=== PATIENT | female | born 1970 | race American Indian/Alaskan Native ===

== ENCOUNTER 2018-11-08 17:06 | Emergency (ER) | payer OTHER ==
--- NOTE | 2018-11-08 17:33 | Emergency Department Report ---
Blank Doc - Documentation Documentation: This is a 48-year-old female that presents with neck pain with radiation to left arm area. Patient also has cough x2 weeks with chest pain only during cough. Patient denies any SOB. This initial assessment/diagnostic orders/clinical plan/treatment(s) is/are subject to change based on patient's health status, clinical progression and re- assessment by fellow clinical providers in the ED. Further treatment and workup at subsequent clinical providers discretion. Patient/guardians urged not to elope from the ED as their condition may be serious if not clinically assessed and managed. Initial orders include: 1- Patient sent to [facility] for further evaluation and treatment 2- EKG 3- Labs 4- CXR
[2018-11-08 18:13] LABS: Hematocrit 38.8 % (30.3-42.9); Hemoglobin 13.2 gm/dl (10.1-14.3); Mean Corpuscular HGB Conc 34 % (30-34); Mean Corpuscular Volume 82 fl (79-97); Platelet Count 292 K/mm3 (140-440); Red Blood Count 4.73 M/mm3 (3.65-5.03); Red Cell Distribution Width 14.5 % (13.2-15.2)
[2018-11-08 18:31] LABS: BUN/Creatinine Ratio 16; Blood Urea Nitrogen 11 mg/dL (7-17); Calcium 9.1 mg/dL (8.4-10.2); Hemolysis Index 20
--- NOTE | 2018-11-08 20:15 | XRay Report ---
PROCEDURE: XR CHEST ROUTINE 2V TECHNIQUE: PA and lateral views of the chest. HISTORY: Chest Pain COMPARISONS: None FINDINGS: Lines, tubes, and devices: N/A Lungs and pleura: Trachea is normal in position. Lungs are clear of infiltrate, pleural effusion, vas cular congestion, or pneumothorax. Cardiomediastinal silhouette: Cardiac and mediastinal silhouettes are unremarkable. Other: Bony structures are intact. IMPRESSION: No acute cardiopulmonary process seen. . This document is electronically signed by Melanie Scott MD., November 08 2018 08:13:17 PM ET
[2018-11-08 20:30] LABS: Ovalocytes Few; Total Cells Counted 100
[2018-11-08] MEDS ORDERED: TORADOL IM ONE (20:31)
[2018-11-08] MEDS ORDERED: NORCO 5/325 PO ONE (20:31)
[2018-11-08] MEDS ORDERED: TESSALON PERLES PO ONE (20:31)
--- NOTE | 2018-11-08 20:54 | Emergency Department Report ---
- General Chief Complaint: Chest Pain Stated Complaint: (L) SIDE CHEST PAIN/ARM Time Seen by Provider: 11/08/18 17:30 Source: patient Mode of arrival: Ambulatory Limitations: No Limitations - History of Present Illness Initial Comments: 48-year-old female with a past history of previous subarachnoid hemorrhage in 2016, hypertension, and elevated cholesterol resisted hospital for placement of pain and cold symptoms 2 weeks. The past 2 weeks she has had nasal congestion with decreased appetite. Today she developed a nonproductive cough. Patient complains of left sided neck pain that worsens with palpation and movement. Pain is aching rate is 7/10 in intensity. Improved with immobilization. Positive intermittent shooting pains going down the arm without focal weakness. Patient complains of anterior chest pain with cough only. She denies wheezing, shortness of breath, or fevers. She tried Tylenol and Coricidin products without relief. Patient is compliant with her blood pressure medication last dosed this a.m. She is noncompliant with her cholesterol medication. She has not seen her doctor in over one year. - Related Data Previous Rx's Medication Instructions Recorded Last Taken Type Acetaminophen/Codeine [Tylenol #3] 1 tab PO Q6H PRN #20 tab 06/22/15 Unknown Rx Prednisone [predniSONE 5 mg (6-Day 5 mg PO .TAPER #1 tab.ds.pk 06/22/15 Unknown Rx Pack, 21 Tabs)] Azithromycin [Zithromax Z-PEDRO LUIS] 1 dose PO DAILY 5 Days tab 11/08/18 Unknown Rx Benzonatate [Tessalon Perles] 100 mg PO Q8HR PRN #20 capsule 11/08/18 Unknown Rx Cyclobenzaprine [Flexeril] 10 mg PO TID PRN #20 tablet 11/08/18 Unknown Rx HYDROcodone/APAP 5-325 [[place] 1 each PO Q6HR PRN #15 tablet 11/08/18 Unknown Rx 5/325] Ibuprofen [Motrin] 600 mg PO Q8H PRN #20 tablet 11/08/18 Unknown Rx Sodium Chloride [Saline Nasal 1 - 2 spray NS PRN PRN #1 bottle 11/08/18 Unknown Rx [place]] Allergies Allergy/AdvReac Type Severity Reaction Status Date / Time No Known Allergies Allergy Verified 06/21/15 21:47 ED Review of Systems ROS: Stated complaint: (L) SIDE CHEST PAIN/ARM Other details as noted in HPI Comment: All other systems reviewed and negative ED Past Medical Hx - Past Medical History Hx Hypertension: Yes Hx CVA: Yes (SAH 2017) Additional medical history: SAH 2016. elevated cholesterol - Surgical History Additional Surgical History: brain surgery due to SAH - Social History Smoking Status: Never Smoker Substance Use Type: None - Medications Home Medications: Home Medications Medication Instructions Recorded Confirmed Last Taken Type Acetaminophen/Codeine [Tylenol #3] 1 tab PO Q6H PRN #20 tab 06/22/15 Unknown Rx Prednisone [predniSONE 5 mg (6-Day 5 mg PO .TAPER #1 tab.ds.pk 06/22/15 Unknown Rx Pack, 21 Tabs)] Azithromycin [Zithromax Z-PEDRO LUIS] 1 dose PO DAILY 5 Days tab 11/08/18 Unknown Rx Benzonatate [Tessalon Perles] 100 mg PO Q8HR PRN #20 capsule 11/08/18 Unknown Rx Cyclobenzaprine [Flexeril] 10 mg PO TID PRN #20 tablet 11/08/18 Unknown Rx HYDROcodone/APAP 5-325 [[place] 1 each PO Q6HR PRN #15 tablet 11/08/18 Unknown Rx 5/325] Ibuprofen [Motrin] 600 mg PO Q8H PRN #20 tablet 11/08/18 Unknown Rx Sodium Chloride [Saline Nasal 1 - 2 spray NS PRN PRN #1 bottle 11/08/18 Unknown Rx [place]] ED Physical Exam - General Limitations: No Limitations - Eye Eye exam: Present: periorbital tenderness - Other Other exam information: General: No limitations, patient is alert in no acute distress Head exam: Atraumatic, normocephalic Eyes exam: Normal appearance, pupils equal reactive to light, extraocular movements intact ENT: Moist mucous membrane, nasal congestion Neck exam: Normal inspection, full range of motion, no meningismus, reproducible left trapezius and sternocleidomastoid tenderness extending to the shoulder. Respiratory exam: Clear to auscultation bilateral, no wheezes, rales, crackles. Reproducible anterior chest wall tenderness Cardiovascular: Normal rate and rhythm, normal heart sounds Abdomen: Soft, nondistended, and nontender, with normal bowel sounds, no rebound, or guarding Extremity: Full range of motion normal inspection no deformity, no calf tenderness or edema Back: Normal Inspection, full range of motion, no tenderness Neurologic: Alert, oriented x3, cranial nerves intact, no motor or sensory deficit with equal strength and sensation bilateral upper and lower extremities Psychiatric: normal affect, normal mood Skin: Warm, dry, intact ED Course Vital Signs 11/08/18 11/08/18 17:37 20:19 Temperature 97.9 F Pulse Rate 99 H Respiratory 16 Rate Blood Pressure 169/83 173/84 O2 Sat by Pulse 100 97 Oximetry ED Medical Decision Making - Lab Data Result diagrams: 11/08/18 17:47 11/08/18 17:47 Lab Results 11/08/18 11/08/18 Range/Units 17:47 17:47 WBC 4.8 (4.5-11.0) K/mm3 RBC 4.73 (3.65-5.03) M/mm3 Hgb 13.2 (10.1-14.3) gm/dl Hct 38.8 (30.3-42.9) % MCV 82 (79-97) fl MCH 28 (28-32) pg MCHC 34 (30-34) % RDW 14.5 (13.2-15.2) % Plt Count 292 (140-440) K/mm3 Lymph % (Auto) Not Reportable [place] % (Auto) Not Reportable Eos % (Auto) Not Reportable Baso % (Auto) Not Reportable Lymph # Not Reportable [place] # Not Reportable Eos # Not Reportable Baso # Not Reportable Add Manual Diff Complete Total Counted 100 Seg Neuts % (Manual) 52.0 (40.0-70.0) % Band Neutrophils % 1.0 % Lymphocytes % (Manual) 36.0 H (13.4-35.0) % Reactive Lymphs % (Man) 0 % Monocytes % (Manual) 9.0 H (0.0-7.3) % Eosinophils % (Manual) 1.0 (0.0-4.3) % Basophils % (Manual) 1.0 (0.0-1.8) % Metamyelocytes % 0 % Myelocytes % 0 % Promyelocytes % 0 % Blast Cells % 0 % Nucleated RBC % Not Reportable Seg Neutrophils # Not Reportable Seg Neutrophils # Man 2.5 (1.8-7.7) K/mm3 Band Neutrophils # 0.0 K/mm3 Lymphocytes # (Manual) 1.7 (1.2-5.4) K/mm3 Abs React Lymphs (Man) 0.0 K/mm3 Monocytes # (Manual) 0.4 (0.0-0.8) K/mm3 Eosinophils # (Manual) 0.0 (0.0-0.4) K/mm3 Basophils # (Manual) 0.0 (0.0-0.1) K/mm3 Metamyelocytes # 0.0 K/mm3 Myelocytes # 0.0 K/mm3 Promyelocytes # 0.0 K/mm3 Blast Cells # 0.0 K/mm3 WBC Morphology Not Reportable Hypersegmented Neuts Not Reportable Hyposegmented Neuts Not Reportable Hypogranular Neuts Not Reportable Smudge Cells Not Reportable Toxic Granulation Not Reportable Toxic Vacuolation Not Reportable Dohle Bodies Not Reportable Pelger-Huet Anomaly Not Reportable Radha Rods Not Reportable Platelet Estimate Appears normal Clumped Platelets Not Reportable Plt Clumps, EDTA Not Reportable Large Platelets Not Reportable Giant Platelets Not Reportable Platelet Satelliting Not Reportable Plt Morphology Comment Not Reportable RBC Morphology Not Reportable Dimorphic RBCs Not Reportable Polychromasia Not Reportable Hypochromasia Not Reportable Poikilocytosis Not Reportable Anisocytosis Not Reportable Microcytosis Not Reportable Macrocytosis Not Reportable Spherocytes Not Reportable Pappenheimer Bodies Not Reportable Sickle Cells Not Reportable Target Cells Not Reportable Tear Drop Cells Not Reportable Ovalocytes Few Helmet Cells Not Reportable [place] Bodies Not Reportable [place] Rings Not Reportable [place] Cells Not Reportable Bite Cells Not Reportable Crenated Cell Not Reportable Elliptocytes Not Reportable Acanthocytes (Spur) Not Reportable Rouleaux Not Reportable Hemoglobin C Crystals Not Reportable Schistocytes Not Reportable Malaria parasites Not Reportable Wing Bodies Not Reportable Hem Pathologist Commnt No Sodium 144 (137-145) mmol/L Potassium 3.9 (3.6-5.0) mmol/L Chloride 106.2 (98-107) mmol/L Carbon Dioxide 24 (22-30) mmol/L Anion Gap 18 mmol/L BUN 11 (7-17) mg/dL Creatinine 0.7 (0.7-1.2) mg/dL Estimated GFR > 60 ml/min BUN/Creatinine Ratio 16 % Glucose 138 H (65-100) mg/dL Calcium 9.1 (8.4-10.2) mg/dL Troponin T < 0.010 (0.00-0.029) ng/mL - EKG Data -: EKG Interpreted by Me EKG shows normal: sinus rhythm, axis (qrs 62), QRS complexes (qrsd 82), ST-T waves (no stemi) Rate: normal - EKG Data When compared to previous EKG there are: previous EKG unavailable - Radiology Data Radiology results: report reviewed cxr naf - Medical Decision Making Patient she is symptomatically for pain. Left sided neck pain appears muscular skeletal possible associated radiculopathy. Chest pain is also reproducible rectae secondary to URI and cough. Patient she will be treated with a Z-Pedro Luis and symptomatic treatment and outpatient follow-up with PMD encouraged - Differential Diagnosis bronchitis, pneumonia, muscle strain, radiculopathy, CVA Critical Care Time: No Critical care attestation.: If time is entered above; I have spent that time in minutes in the direct care of this critically ill patient, excluding procedure time. ED Disposition Clinical Impression: Acute bronchitis, URI (upper respiratory infection), Strain of neck, Cervical radiculopathy, Strain of chest wall, Chronic hypertension Disposition: DC- TO HOME OR SELFCARE Is pt being admited?: No Does the pt Need Aspirin: No Condition: Stable Instructions: Upper Respiratory Infection (ED), Acute Bronchitis (ED), Cervical Sprain (ED), Cervical Radiculopathy (ED), Thoracic Pain (ED), Hypertension (ED) Additional Instructions: Take the medication as prescribed. Follow up with your doctor or the clinic/doctor provided. Return if symptoms worsen as indicated by your dischar ge instructions Prescriptions: Cyclobenzaprine [Flexeril] 10 mg PO TID PRN #20 tablet PRN Reason: Muscle Spasm Ibuprofen [Motrin] 600 mg PO Q8H PRN #20 tablet PRN Reason: Pain HYDROcodone/APAP 5-325 [[place] 5/325] 1 each PO Q6HR PRN #15 tablet PRN Reason: Pain Sodium Chloride [Saline Nasal [place]] 1 - 2 spray NS PRN PRN #1 bottle PRN Reason: Nasal Congestion Benzonatate [Tessalon Perles] 100 mg PO Q8HR PRN #20 capsule PRN Reason: Cough Azithromycin [Zithromax Z-PEDRO LUIS] 1 dose PO DAILY 5 Days tab Referrals: XI EVANS MD [Primary Care Provider] - 3-5 Days Time of Disposition: 22:16
[2018-11-08 22:34] VITALS: BP 168/94
== END 2018-11-08 22:37 | disposition home or self-care (01) ==
LOC: ED 17:06
DX: S16.1XXA Strain of muscle, fascia and tendon at neck level, initial encounter (principal); S29.011A Strain of muscle and tendon of front wall of thorax, initial encounter; J20.9 Acute bronchitis, unspecified; I10 Essential (primary) hypertension; X58.XXXA Exposure to other specified factors, initial encounter; Y93.89 Activity, other specified; Y92.89 Other specified places as the place of occurrence of the external cause; Y99.8 Other external cause status
CPT/HCPCS: 36415; 71046; 80048; 84484; 85007; 85025; 93005; 93010; 96372; 99284; J1885

== ENCOUNTER 2018-11-11 15:29 | Emergency (ER) | payer OTHER ==
[2018-11-11 18:15] VITALS: BP 164/90
--- NOTE | 2018-11-11 18:16 | Emergency Department Report ---
Chief Complaint: Allergic Reaction Stated Complaint: ALLERGIC REACTION Time Seen by Provider: 11/11/18 18:12 - HPI History of Present Illness: Pt was evaluated in the ED two days ago received IM injection of toradol, pt states she has received this medicine previously in the past c/o left arm pain, states that she also has a rash to the face had not taken anything for it MSE screening note: Focused history and physical exam performed. ED Disposition for MSE Condition: Stable
[2018-11-11] MEDS ORDERED: BANOPHEN PO ONE (18:17)
[2018-11-11] MEDS ORDERED: DECADRON IV ONE (19:40)
[2018-11-11] MEDS ORDERED: TORADOL IV ONE (19:40)
[2018-11-11] MEDS ORDERED: REGLAN IV ONE (19:40)
--- NOTE | 2018-11-11 20:35 | Emergency Department Report ---
ED Allergic Reaction HPI - General Chief complaint: Allergic Reaction Stated complaint: ALLERGIC REACTION Time Seen by Provider: 11/11/18 18:12 Source: patient Mode of arrival: Ambulatory Limitations: No Limitations - History of Present Illness Initial Comments: pt c/o neck pain that began 2 weeks radiating down the right arm, says it feels like "it has fallen asleep" no injury, trauma, or fall, never had before MD Complaint: allergic reaction Onset/Timin -: days(s) Exposure: medication Symptoms: rash, itching Severity: moderate Treatment Prior to Arrival: none Previous Allergy History: none - Related Data Previous Rx's Medication Instructions Recorded Last Taken Type Acetaminophen/Codeine [Tylenol #3] 1 tab PO Q6H PRN #20 tab 06/22/15 Unknown Rx Prednisone [predniSONE 5 mg (6-Day 5 mg PO .TAPER #1 tab.ds.pk 06/22/15 Unknown Rx Pack, 21 Tabs)] Azithromycin [Zithromax Z-THEODORE] 1 dose PO DAILY 5 Days tab 11/08/18 Unknown Rx Benzonatate [Tessalon Perles] 100 mg PO Q8HR PRN #20 capsule 11/08/18 Unknown Rx Cyclobenzaprine [Flexeril] 10 mg PO TID PRN #20 tablet 11/08/18 Unknown Rx HYDROcodone/APAP 5-325 [[place] 1 each PO Q6HR PRN #15 tablet 11/08/18 Unknown Rx 5/325] Ibuprofen [Motrin] 600 mg PO Q8H PRN #20 tablet 11/08/18 Unknown Rx Sodium Chloride [Saline Nasal 1 - 2 spray NS PRN PRN #1 bottle 11/08/18 Unknown Rx [place]] Famotidine [Pepcid] 20 mg PO BID 7 Days #14 tablet 11/11/18 Unknown Rx Ibuprofen 800 mg PO TID PRN #30 tablet 11/11/18 Unknown Rx predniSONE [Deltasone] 40 mg PO QDAY 5 Days #10 tab 11/11/18 Unknown Rx Allergies Allergy/AdvReac Type Severity Reaction Status Date / Time No Known Allergies Allergy Verified 06/21/15 21:47 ED Review of Systems ROS: Stated complaint: ALLERGIC REACTION Other details as noted in HPI Constitutional: denies: chills, fever Eyes: denies: eye pain, eye discharge, vision change ENT: denies: ear pain, throat pain Respiratory: denies: cough, shortness of breath, wheezing Cardiovascular: denies: chest pain, palpitations Endocrine: no symptoms reported Gastrointestinal: denies: abdominal pain, nausea, diarrhea Genitourinary: denies: urgency, dysuria, discharge Musculoskeletal: other (injection site pain swelling ) Skin: denies: rash, lesions Neurological: denies: headache, weakness, paresthesias Psychiatric: denies: anxiety, depression Hematological/Lymphatic: denies: easy bleeding, easy bruising ED Past Medical Hx - Past Medical History Previous Medical History?: Yes Hx Hypertension: Yes Hx CVA: Yes (SAH 2017) Additional medical history: SAH 2016. elevated cholesterol - Surgical History Past Surgical History?: Yes Additional Surgical History: brain surgery due to SAH - Social History Smoking Status: Never Smoker Substance Use Type: None - Medications Home Medications: Home Medications Medication Instructions Recorded Confirmed Last Taken Type Acetaminophen/Codeine [Tylenol #3] 1 tab PO Q6H PRN #20 tab 06/22/15 Unknown Rx Prednisone [predniSONE 5 mg (6-Day 5 mg PO .TAPER #1 tab.ds.pk 06/22/15 Unknown Rx Pack, 21 Tabs)] Azithromycin [Zithromax Z-THEODORE] 1 dose PO DAILY 5 Days tab 11/08/18 Unknown Rx Benzonatate [Tessalon Perles] 100 mg PO Q8HR PRN #20 capsule 11/08/18 Unknown Rx Cyclobenzaprine [Flexeril] 10 mg PO TID PRN #20 tablet 11/08/18 Unknown Rx HYDROcodone/APAP 5-325 [[place] 1 each PO Q6HR PRN #15 tablet 11/08/18 Unknown Rx 5/325] Ibuprofen [Motrin] 600 mg PO Q8H PRN #20 tablet 11/08/18 Unknown Rx Sodium Chloride [Saline Nasal 1 - 2 spray NS PRN PRN #1 bottle 11/08/18 Unknown Rx [place]] Famotidine [Pepcid] 20 mg PO BID 7 Days #14 tablet 11/11/18 Unknown Rx Ibuprofen 800 mg PO TID PRN #30 tablet 11/11/18 Unknown Rx predniSONE [Deltasone] 40 mg PO QDAY 5 Days #10 tab 11/11/18 Unknown Rx ED Physical Exam - General Limitations: No Limitations General appearance: alert, in no apparent distress - Head Head exam: Present: atraumatic, normocephalic - Eye Eye exam: Present: normal appearance, PERRL, EOMI - ENT ENT exam: Present: normal exam, normal orophraynx, mucous membranes moist, TM's normal bilaterally, normal external ear exam - Neck Neck exam: Present: normal inspection, full ROM. Absent: tenderness, meningismus, lymphadenopathy - Respiratory Respiratory exam: Present: normal lung sounds bilaterally. Absent: respiratory distress, wheezes, stridor, chest wall tenderness - Cardiovascular Cardiovascular Exam: Present: regular rate, normal rhythm, normal heart sounds. Absent: systolic murmur, diastolic murmur, rubs, gallop - GI/Abdominal GI/Abdominal exam: Present: soft, normal bowel sounds. Absent: tenderness, mass, bruit - Rectal Rectal exam: Present: deferred - Extremities Exam Extremities exam: Present: normal inspection, tenderness (lefty upper arm pain mild swelling no erythema no ecchymosis no rash rom intact urnerestricted ), normal capillary refill, pedal edema, joint swelling, calf tenderness - Back Exam Back exam: Present: normal inspection, full ROM. Absent: tenderness, CVA tenderness (R), CVA tenderness (L), muscle spasm, paraspinal tenderness, vertebral tenderness, rash noted - Neurological Exam Neurological exam: Present: alert, oriented X3, CN II-XII intact, normal gait, motor sensory deficit. Absent: reflexes normal - Psychiatric Psychiatric exam: Present: normal affect, normal mood - Skin Skin exam: Present: warm, dry, intact, normal color. Absent: rash ED Course Vital Signs 11/11/18 18:13 Temperature 98.0 F Pulse Rate 100 H Respiratory 16 Rate Blood Pressure 164/90 O2 Sat by Pulse 99 Oximetry ED Medical Decision Making - Medical Decision Making this is an injection site react only pain is improved with medications given in ed , plan prednisone, ibuprofen, pepcid, warm compresses follow up with pcp in 2-3 days return to ed if symptoms worsen pt verbalized agreement and under standing of discharge plan. Critical care attestation.: If time is entered above; I have spent that time in minutes in the direct care of this critically ill patient, excluding procedure time. ED Disposition Clinical Impression: Injection (erythema), Muscle pain Disposition: - TO HOME OR SELFCARE Is pt being admited?: No Does the pt Need Aspirin: No Condition: Stable Instructions: Musculoskeletal Pain (ED) Prescriptions: predniSONE [Deltasone] 40 mg PO QDAY 5 Days #10 tab Ibuprofen 800 mg PO TID PRN #30 tablet PRN Reason: pain Famotidine [Pepcid] 20 mg PO BID 7 Days #14 tablet Referrals: PRIMARY CARE, [Primary Care Provider] - 3-5 Days Forms: Work/School Release Form(ED) Time of Disposition: 20:38
== END 2018-11-11 20:45 | disposition home or self-care (01) ==
LOC: ED 15:29
DX: M79.18 Myalgia, other site (principal); L53.9 Erythematous condition, unspecified; I10 Essential (primary) hypertension; Z86.73 Personal history of transient ischemic attack (TIA), and cerebral infarction without residual deficits
CPT/HCPCS: 96374; 96375; 99282; J1100; J1885; J2765; Q0163

== ENCOUNTER 2020-12-10 21:22 | Observation (INO) | payer OTHER ==
--- NOTE | 2020-12-10 23:43 | XRay Report ---
CHEST PA AND LATERAL VIEWS INDICATION: chest pain. COMPARISON: None. FINDINGS: Support devices: None. Heart: Within normal limits. Lungs/Pleura: No acute pulmonary or pleural findings. IMPRESSION: 1. No acute findings. Signer Name: Chan Alves MD Signed: 12/10/2020 11:38 PM Workstation Name: [id number]
[2020-12-10 23:46] LABS: Basophils % (Auto) 0.6 % (0.0-1.8); Hematocrit 37.9 % (30.3-42.9); Hemoglobin 12.7 gm/dl (10.1-14.3); Lymphocytes % (Auto) 41.5 % (13.4-35.0); Mean Corpuscular HGB Conc 33 % (30-34); Mean Corpuscular Volume 82 fl (79-97); Monocytes # (Auto) 0.3 K/mm3 (0.0-0.8); Monocytes % (Auto) 6.8 % (0.0-7.3); Platelet Count 317 K/mm3 (140-440); Red Cell Distribution Width 14.5 % (13.2-15.2)
[2020-12-11 00:05] LABS: Alanine Aminotransferase 10 units/L (7-56); Albumin 4.8 g/dL (3.9-5); Blood Urea Nitrogen 10 mg/dL (7-17); Calcium 9.5 mg/dL (8.4-10.2); Hemolysis Index 17
[2020-12-11 00:30] LABS: BUN/Creatinine Ratio 17
[2020-12-11] MEDS ORDERED: SODIUM CHLORIDE 0.9% 1000 ML 500 ML IV ONE (08:17)
[2020-12-11] MEDS ORDERED: NITROGLYCERIN 0.4 MG TAB SUBL SL PRN (08:18)
--- NOTE | 2020-12-11 08:18 | Emergency Department Report ---
ED General Adult HPI - General Chief complaint: Chest Pain Stated complaint: my chest hurts and my arm is weak PUI?: No Time Seen by Provider: 12/11/20 07:13 Source: patient, RN notes reviewed Mode of arrival: Ambulatory Limitations: No Limitations - History of Present Illness Initial comments: The patient was evaluated in the emergency department for symptoms described in the history of present illness. He/she was evaluated in the context of the global COVID-19 pandemic, which necessitated consideration that the patient mi ght be at risk for infection with the virus that causes COVID-19. Institutional protocols and algorithms that pertain to the evaluation of patients at risk for COVID-19 are in a state of rapid change based on information released by regulatory bodies including the CDC and federal and state organizations. These policies and algorithms were followed during the patient's care in the emergency department. Please note that these policies, procedures and recommendations changed on a rapid basis. This is a pleasant 50-year-old female. She is not known to myself previously. She is right-hand dominant. She has a history of subarachnoid hemorrhage, hypertension, and high cholesterol. She presents to the ER with 2 complaints. Her first complaint is chest pain. The chest pain is central, and occasionally radiates to the right chest/shoulder, and left chest and shoulder. She indicates that it feels like "lightning." She denies headache, neck pain, vomiting, diaphoresis, shortness of breath. She denies travel, surgery, DVT and pulmonary embolism risk factors, leg pain and leg swelling. She also endorses that she feels like her left upper extremity is weak and numb, which started at 2:00 PM yesterday. She denies additional injuries, and she denies additional complaints. -: Gradual, hour(s), days(s) Location: chest, left, upper extremity Radiation: other (Bilateral chest) Severity scale (0 -10): 0 Quality: aching Consistency: intermittent Improves with: none Worsens with: none - Related Data Previous Rx's Medication Instructions Recorded Last Taken Type Acetaminophen/Codeine [Tylenol #3] 1 tab PO Q6H PRN #20 tab 06/22/15 Unknown Rx Prednisone [predniSONE 5 mg (6-Day 5 mg PO .TAPER #1 tab.ds.pk 06/22/15 Unknown Rx Pack, 21 Tabs)] Azithromycin [Zithromax Z-THEODORE] 1 dose PO DAILY 5 Days tab 11/08/18 Unknown Rx Benzonatate [Tessalon Perles] 100 mg PO Q8HR PRN #20 capsule 11/08/18 Unknown Rx Cyclobenzaprine [Flexeril] 10 mg PO TID PRN #20 tablet 11/08/18 Unknown Rx HYDROcodone/APAP 5-325 [[place] 1 each PO Q6HR PRN #15 tablet 11/08/18 Unknown Rx 5/325] Ibuprofen [Motrin] 600 mg PO Q8H PRN #20 tablet 11/08/18 Unknown Rx Sodium Chloride [Saline Nasal 1 - 2 spray NS PRN PRN #1 bottle 11/08/18 Unknown Rx [place]] Famotidine [Pepcid] 20 mg PO BID 7 Days #14 tablet 11/11/18 Unknown Rx Ibuprofen [Ibuprofen 800] 800 mg PO TID PRN #30 tablet 11/11/18 Unknown Rx predniSONE [Deltasone] 40 mg PO QDAY 5 Days #10 tab 11/11/18 Unknown Rx Allergies Allergy/AdvReac Type Severity Reaction Status Date / Time No Known Allergies Allergy Verified 06/21/15 21:47 ED Review of Systems ROS: Stated complaint: CHEST PAIN/WEAKNESS LT ARM Other details as noted in HPI Constitutional: other (Denies diaphoresis. Denies loss of taste and smell). denies: fever Eyes: denies: eye discharge, vision change ENT: denies: epistaxis Respiratory: denies: cough Cardiovascular: chest pain Gastrointestinal: denies: nausea, vomiting, hematemesis, melena, hematochezia Genitourinary: denies: dysuria Musculoskeletal: myalgia Neurological: weakness, numbness ED Past Medical Hx - Past Medical History Previous Medical History?: Yes Hx Hypertension: Yes Hx CVA: Yes (SAH 2017) Additional medical history: SAH 2016. elevated cholesterol - Surgical History Past Surgical History?: Yes Additional Surgical History: brain surgery due to SAH - Social History Smoking Status: Never Smoker Substance Use Type: None - Medications Home Medications: Home Medications Medication Instructions Recorded Confirmed Last Taken Type Acetaminophen/Codeine [Tylenol #3] 1 tab PO Q6H PRN #20 tab 06/22/15 Unknown Rx Prednisone [predniSONE 5 mg (6-Day 5 mg PO .TAPER #1 tab.ds.pk 10/23/15 Unknown Rx Pack, 21 Tabs)] Azithromycin [Zithromax Z-THEODORE] 1 dose PO DAILY 5 Days tab 11/08/18 Unknown Rx Benzonatate [Tessalon Perles] 100 mg PO Q8HR PRN #20 capsule 11/08/18 Unknown Rx Cyclobenzaprine [Flexeril] 10 mg PO TID PRN #20 tablet 11/08/18 Unknown Rx HYDROcodone/APAP 5-325 [[place] 1 each PO Q6HR PRN #15 tablet 11/08/18 Unknown Rx 5/325] Ibuprofen [Motrin] 600 mg PO Q8H PRN #20 tablet 11/08/18 Unknown Rx Sodium Chloride [Saline Nasal 1 - 2 spray NS PRN PRN #1 bottle 11/08/18 Unknown Rx [place]] Famotidine [Pepcid] 20 mg PO BID 7 Days #14 tablet 11/11/18 Unknown Rx Ibuprofen [Ibuprofen 800] 800 mg PO TID PRN #30 tablet 11/11/18 Unknown Rx predniSONE [Deltasone] 40 mg PO QDAY 5 Days #10 tab 11/11/18 Unknown Rx ED Physical Exam - General Limitations: No Limitations General appearance: alert, anxious - Head Head exam: Present: atraumatic, normocephalic - Eye Eye exam: Present: normal appearance, PERRL, EOMI. Absent: nystagmus - ENT ENT exam: Present: normal exam, normal orophraynx, mucous membranes moist, normal external ear exam - Neck Neck exam: Present: normal inspection, full ROM. Absent: tenderness, meningismus - Respiratory Respiratory exam: Present: normal lung sounds bilaterally. Absent: respiratory distress, wheezes, rales, rhonchi, stridor, decreased breath sounds - Cardiovascular Cardiovascular Exam: Present: regular rate, normal rhythm, normal heart sounds. Absent: bradycardia, tachycardia, irregular rhythm, systolic murmur, diastolic murmur, rubs, gallop - GI/Abdominal GI/Abdominal exam: Present: soft. Absent: distended, tenderness, guarding, rebound, rigid, pulsatile mass - Extremities Exam Extremities exam: Present: normal inspection, full ROM. Absent: pedal edema, calf tenderness - Back Exam Back exam: Present: normal inspection, full ROM. Absent: tenderness, CVA tenderness (R), CVA tenderness (L), paraspinal tenderness, vertebral tenderness - Neurological Exam Neurological exam: Present: alert, oriented X3, normal gait, motor sensory deficit (There is decrease sensation to light touch in the left upper extremity.), other (There is 5 out of 5 strength in 4 extremities. There is no facial droop. The tongue is midline. Speaking in complete sentences.) - Psychiatric Psychiatric exam: Present: anxious - Skin Skin exam: Present: warm, dry, intact, normal color. Absent: rash ED Course Vital Signs 12/10/20 12/10/20 12/11/20 23:03 23:06 09:30 Temperature 98.2 F Pulse Rate 76 Respiratory 16 16 Rate Blood Pressure 183/100 O2 Sat by Pulse 99 Oximetry 12/11/20 09:32 Temperature Pulse Rate 94 H Respiratory Rate Blood Pressure O2 Sat by Pulse Oximetry ED Medical Decision Making - Lab Data Result diagrams: 12/10/20 23:10 12/10/20 23:10 Vital Signs 12/10/20 12/10/20 12/11/20 23:03 23:06 09:30 Temperature 98.2 F Pulse Rate 76 Respiratory 16 16 Rate Blood Pressure 183/100 O2 Sat by Pulse 99 Oximetry 12/11/20 09:32 Temperature Pulse Rate 94 H Respiratory Rate Blood Pressure O2 Sat by Pulse Oximetry Lab Results 12/10/20 12/10/20 12/11/20 Range/Units 23:10 23:10 03:17 WBC 4.8 (4.5-11.0) K/mm3 RBC 4.60 (3.65-5.03) M/mm3 Hgb 12.7 (10.1-14.3) gm/dl Hct 37.9 (30.3-42.9) % MCV 82 (79-97) fl MCH 28 (28-32) pg MCHC 33 (30-34) % RDW 14.5 (13.2-15.2) % Plt Count 317 (140-440) K/mm3 Lymph % (Auto) 41.5 H (13.4-35.0) % [place] % (Auto) 6.8 (0.0-7.3) % Eos % (Auto) 1.0 (0.0-4.3) % Baso % (Auto) 0.6 (0.0-1.8) % Lymph # (Auto) 2.0 (1.2-5.4) K/mm3 [place] # (Auto) 0.3 (0.0-0.8) K/mm3 Eos # (Auto) 0.0 (0.0-0.4) K/mm3 Baso # (Auto) 0.0 (0.0-0.1) K/mm3 Seg Neutrophils % 50.1 (40.0-70.0) % Seg Neutrophils # 2.4 (1.8-7.7) K/mm3 PT (12.2-14.9) Sec. INR (0.87-1.13) APTT (24.2-36.6) Sec. Thrombin Time (15.1-19.6) Sec. Sodium 142 (137-145) mmol/L Potassium 4.1 (3.6-5.0) mmol/L Chloride 101.5 (98-107) mmol/L Carbon Dioxide 28 (22-30) mmol/L Anion Gap 17 mmol/L BUN 10 (7-17) mg/dL Creatinine 0.6 (0.6-1.2) mg/dL Estimated GFR > 60 ml/min BUN/Creatinine Ratio 17 % Glucose 99 (65-100) mg/dL Calcium 9.5 (8.4-10.2) mg/dL Magnesium (1.7-2.3) mg/dL Total Bilirubin 0.80 (0.1-1.2) mg/dL AST 12 (5-40) units/L ALT 10 (7-56) units/L Alkaline Phosphatase 80 (35-129) units/L Total Creatine Kinase (30-135) units/L Troponin T < 0.010 (0.00-0.029) ng/mL Total Protein 7.5 (6.3-8.2) g/dL Albumin 4.8 (3.9-5) g/dL Albumin/Globulin Ratio 1.8 % 12/11/20 12/11/20 12/11/20 Range/Units 07:46 08:36 08:36 WBC (4.5-11.0) K/mm3 RBC (3.65-5.03) M/mm3 Hgb (10.1-14.3) gm/dl Hct (30.3-42.9) % MCV (79-97) fl MCH (28-32) pg MCHC (30-34) % RDW (13.2-15.2) % Plt Count (140-440) K/mm3 Lymph % (Auto) (13.4-35.0) % [place] % (Auto) (0.0-7.3) % Eos % (Auto) (0.0-4.3) % Baso % (Auto) (0.0-1.8) % Lymph # (Auto) (1.2-5.4) K/mm3 [place] # (Auto) (0.0-0.8) K/mm3 Eos # (Auto) (0.0-0.4) K/mm3 Baso # (Auto) (0.0-0.1) K/mm3 Seg Neutrophils % (40.0-70.0) % Seg Neutrophils # (1.8-7.7) K/mm3 PT 12.9 (12.2-14.9) Sec. INR 0.98 (0.87-1.13) APTT 33.9 (24.2-36.6) Sec. Thrombin Time 16.3 (15.1-19.6) Sec. Sodium (137-145) mmol/L Potassium (3.6-5.0) mmol/L Chloride (98-107) mmol/L Carbon Dioxide (22-30) mmol/L Anion Gap mmol/L BUN (7-17) mg/dL Creatinine (0.6-1.2) mg/dL Estimated GFR ml/min BUN/Creatinine Ratio % Glucose (65-100) mg/dL Calcium (8.4-10.2) mg/dL Magnesium 2.00 (1.7-2.3) mg/dL Total Bilirubin (0.1-1.2) mg/dL AST (5-40) units/L ALT (7-56) units/L Alkaline Phosphatase (35-129) units/L Total Creatine Kinase 160 H (30-135) units/L Troponin T < 0.010 (0.00-0.029) ng/mL Total Protein (6.3-8.2) g/dL Albumin (3.9-5) g/dL Albumin/Globulin Ratio % - EKG Data -: EKG Interpreted by Tn EKG shows normal: sinus rhythm Rate: normal - EKG Data When compared to previous EKG there are: previous EKG unavailable 12/11/20 10:37 The EKG today shows a sinus rhythm, 68 bpm. Normal axis, QTC within normal limits, there is poor R wave progression, this EKG is abnormal, the EKG is no STEMI. - Radiology Data Radiology results: report reviewed, image reviewed CT head/brain wo con INDICATION / CLINICAL INFORMATION: 50 years Female; MAIN. TECHNIQUE: Routine CT head without contrast. All CT scans at this location are performed using CT dose reduction for ALARA by means of automated exposure control. COMPARISON: None. FINDINGS: BRAIN / INTRACRANIAL CONTENTS: No acute hemorrhage, mass effect, midline shift, hydrocephalus, or acute, large territorial infarct. No signs of significant atrophy or chronic infarct. No significant white matter abnormality seen. CRANIOCERVICAL JUNCTION: No significant abnormality. ORBITS: No significant abnormality of visualized orbits. SINUSES / MASTOIDS: Visualized paranasal sinuses and mastoid air cells are essentially clear. ADDITIONAL FINDINGS: None. IMPRESSION: 1. No focal mass, hemorrhage, hydrocephalus, or acute, large territorial infarct. Signer Name: Zan Hernandez MD, III Signed: 12/11/2020 7:34 AM Workstation Name: [id number] CTA HEAD AND NECK WITH CONTRAST HISTORY: Stroke symptoms. COMPARISON: None. TECHNIQUE: All CT scans at this location are performed using CT dose reduction for ALARA by means of automated exposure control.. 3-D/MIP reformats postprocessed. Percentage stenosis is determined by direct quantitative measurements of diseased internal carotid artery diameter compared with normal distal internal carotid artery reference segments or by criteria similar to NASCET where applicable. CONTRAST: 100 ml of Omnipaque 350 FINDINGS: CTA HEAD: Intracranial vertebral arteries: No significant abnormality. Basilar artery: No significant abnormality. Posterior cerebral arteries: No significant abnormality. Intracranial internal carotid arteries: No significant abnormality. Anterior cerebral arteries: No significant abnormality. Middle cerebral arteries: No significant abnormality. Dural venous sinuses:Not optimally opacified. No significant abnormality. CTA NECK: Aortic arch: No significant abnormality. Cervical vertebral arteries: No significant abnormality. Common carotid arteries: No significant abnormality. Cervical internal carotid arteries: No significant abnormality. Additional findings: None. IMPRESSION: 1. No significant abnormality. Signer Name: Romario Stearns MD Signed: 12/11/2020 8:41 AM Workstation Name: [email or web address] CHEST PA AND LATERAL VIEWS INDICATION: chest pain. COMPARISON: None. FINDIN GS: Support devices: None. Heart: Within normal limits. Lungs/Pleura: No acute pulmonary or pleural findings. IMPRESSION: 1. No acute findings. Signer Name: Chan Alves MD Signed: 12/10/2020 10:38 PM Workstation Name: [id number] - Medical Decision Making Differential diagnosis, including but not limited to: GERD, gastritis, hiatal hernia, pneumonia, acute coronary syndrome, aortic dissection, stroke Assessment and plan: 50-year-old female, who is not currently tachycardic, tachypneic or hypoxic, who denies DVT and pulmonary embolism risk factors, who is low risk by Wells criteria for pulmonary embolism, with nonspecific EKG, chest pain which is juxtaposed of subjective left upper extremity weakness and numbness. The patient's neurologic symptoms started 2:00 PM yesterday. The patient has an NIH score of 1, and she presented more than 4.5 hours after symptom onset. She is therefore not a TPA candidate. Given combination of chest pain, and neurologic symptoms, a code stroke was called overhead, and CT scan of the brain, CT angiogram head and neck were obtained. No aortic dissection was noted on CT angiogram of the head and neck, no large vessel occlusion was noted, and a noncontrast CT scan of the brain was negative for acute findings. Allow for permissive hypertension, give aspirin, treat symptoms. Patient evaluated by my colleague stroke neurologist, Dr. Burns, who agreed with plan of care for admission. Hospital physician, Dr. Angel to admit to the IMS service Discussed this plan of care with the patient, who verbalized understanding, and he was amenable to this plan of care. As needed nitro, aspirin, inpatient management at this time Critical care attestation.: If time is entered above; I have spent that time in minutes in the direct care of this critically ill patient, excluding procedure time. ED Disposition Clinical Impression: Acute chest pain, Elevated blood pressure reading, Left arm numbness Disposition: OP ADMIT IP TO THIS HOSP Is pt being admited?: Yes Condition: Good Instructions: Chest Pain (ED) Referrals: PRIMARY CARE, [Primary Care Provider] - 3-5 Days Heart Score - HEART Score History: Moderately suspicious EKG: Non-specific Age: 45-65 Risk factors: 1-2 risk factors Troponin: < normal limit HEART Score: 4 - EKG Read Time Time EKG Completed: 23:19 EKG Read Time: 23:24 - Critical Actions Critical Actions: 0-3 pts:0.9-1.7%risk of adverse cardiac event.Candidate for discharge - Assessment Assessment Interval: Baseline - Level of Consciousness 1a. Level of Consciousness: alert/keenly responsive - LOC Questions 1b. LOC Questions: answers both correctly - LOC Command 1c. LOC Commands: performs tasks correctly - Best Gaze 2. Best Gaze: normal - Visual 3. Visual: no visual loss - Facial Palsy 4. Facial Palsy: normal symmetrical movement - Motor Arm 5a. Motor Arm Left: no drift 5b. Motor Arm Right: no drift - Motor Leg 6a. Motor Leg Left: no drift 6b. Motor Leg Right: no drift - Limb Ataxia 7. Limb Ataxia: absent - Sensory 8. Sensory: mild/moderate sensory loss (Decreased sensation to light touch in the left upper extremity) - Best Language 9. Best Language: no aphasia - Dysarthria 10. Dysarthria: normal - Extinction and Inattention 11. Extinction/Inattention: no abnormality - Scoring Total Score: 1 Stroke Severity: Minor Stroke
--- NOTE | 2020-12-11 08:34 | Consultation ---
History of Present Illness - Reason for Consult Consult date: 12/11/20 - History of Present Illness [facility] Consult Note # Demographics Consult Type: Acute Stroke Level 2 (4.5-24 hrs) Patient Location: Emergency Room First Name: Ana Last Name: Krissy Date of : 1970 Age: 50 Gender: Female Time of Initial Page ( Time): 12/11/2020, 08:17 Time of Return Call ( Time): 12/11/2020, 08:17 # HPI History: 50yo woman who presented with chest pain and then had left arm numbness and mild weakness. Symptoms started yesterday at around 2PM in the afternoon. She has no vision changes. She states she had cerebral hemorrhage in 2016. # Scores Time of exam and NIHSS (): 12/11/2020, 08:22 Level of Consciousness 1a: [0] = Alert; keenly responsive LOC Questions 1b: [0] = Answers both questions correctly LOC Commands 1c: [0] = Performs both tasks correctly Best Gaze 2: [0] = Normal Visual 3: [0] = No visual loss Facial Palsy 4: [0] = Normal symmetrical movements Motor Arm Left 5a: [0] = No drift Motor Arm Right 5b: [0] = No drift Motor Leg Left 6a: [0] = No drift Motor Leg Right 6b: [0] = No drift Limb Ataxia 7: [0] = Absent Sensory 8: [1] = [id number]-hjbrfsac sensory loss Best Language 9: [0] = No aphasia Dysarthria 10: [0] = Normal Extinction and Inattention 11: [0] = No abnormality NIHSS Total: 1 # PMH-FH-SH Past Medical History: intracranial hemorrhage # Assessment Impression: Ischemic Stroke (Acute), vs other # Plan Thrombolytic/Intervention: NOT IV Thrombolytic or IA Intervention Thrombolytic Exclusion (< 3 hour window): history of ICH Thrombolytic Exclusion: > 4.5 hours Intraarterial Exclusion: clinically consistent with small vessel disease Target Blood Pressure: SBP < 220 Labs: ESR, lipid panel Imaging: (urgency: STAT in ED): CT Angiogram Head and CT Angiogram Neck Imaging: (urgency: routine admission): MRI Brain without contrast Diagnostic Test: echo with bubble study Therapy/Evaluation: NPO until swallow evaluation, PT/OT evaluation, speech/swallow consultation Medication: aspirin 81 mg daily DVT Prophylaxis: SCD, chemical DVT prophylaxis Other: permissive hypertension, telemetry monitoring, I have discussed my recommendations with the referring provider Disposition: admit Medications and Allergies Allergies Allergy/AdvReac Type Severity Reaction Status Date / Time No Known Allergies Allergy Verified 06/21/15 21:47 Home Medications Medication Instructions Recorded Confirmed Last Taken Type Acetaminophen/Codeine [Tylenol #3] 1 tab PO Q6H PRN #20 tab 06/22/15 Unknown Rx Prednisone [predniSONE 5 mg (6-Day 5 mg PO .TAPER #1 tab.ds.pk 06/22/15 Unknown Rx Pack, 21 Tabs)] Azithromycin [Zithromax Z-THEODORE] 1 dose PO DAILY 5 Days tab 11/08/18 Unknown Rx Benzonatate [Tessalon Perles] 100 mg PO Q8HR PRN #20 capsule 11/08/18 Unknown Rx Cyclobenzaprine [Flexeril] 10 mg PO TID PRN #20 tablet 11/08/18 Unknown Rx HYDROcodone/APAP 5-325 [[place] 1 each PO Q6HR PRN #15 tablet 11/08/18 Unknown Rx 5/325] Ibuprofen [Motrin] 600 mg PO Q8H PRN #20 tablet 11/08/18 Unknown Rx Sodium Chloride [Saline Nasal 1 - 2 spray NS PRN PRN #1 bottle 11/08/18 Unknown Rx [place]] Famotidine [Pepcid] 20 mg PO BID 7 Days #14 tablet 11/11/18 Unknown Rx Ibuprofen [Ibuprofen 800] 800 mg PO TID PRN #30 tablet 11/11/18 Unknown Rx predniSONE [Deltasone] 40 mg PO QDAY 5 Days #10 tab 11/11/18 Unknown Rx Active Meds: Active Medications Sodium Chloride (Nacl 0.9% 1000 Ml) 500 mls @ 999 mls/hr IV BOLUS ONE Stop: 12/11/20 08:47 Nitroglycerin (Nitroglycerin 0.4 Mg Tab Subl) 0.4 mg SL .Q5MIN PRN PRN Reason: Chest Pain Exam - Constitutional Vitals: Temp Pulse Resp BP Pulse Ox 98.2 F 76 16 183/100 99 12/10/20 23:06 12/10/20 23:03 12/10/20 23:03 12/10/20 23:03 12/10/20 23:03 Results - Labs CBC & Chem 7: 12/10/20 23:10 12/10/20 23:10 Labs: Abnormal lab results 12/10/20 Range/Units 23:10 Lymph % (Auto) 41.5 H (13.4-35.0) %
--- NOTE | 2020-12-11 08:38 | Cat Scan Report ---
CT head/brain wo con INDICATION / CLINICAL INFORMATION: 50 years Female; MAIN. TECHNIQUE: Routine CT head without contrast. All CT scans at this location are performed using CT dos e reduction for [place]ARA by means of automated exposure control. COMPARISON: None. FINDINGS: BRAIN / INTRACRANIAL CONTENTS: No acute hemorrhage, mass effect, midline shift, hydrocephalus, or acu te, large territorial infarct. No signs of significant atrophy or chronic infarct. No significant whi te matter abnormality seen. CRANIOCERVICAL JUNCTION: No significant abnormality. ORBITS: No significant abnormality of visualized orbits. SINUSES / MASTOIDS: Visualized paranasal sinuses and mastoid air cells are essentially clear. ADDITIONAL FINDINGS: None. IMPRESSION: 1. No focal mass, hemorrhage, hydrocephalus, or acute, large territorial infarct. Signer Name: Zan Hernandez MD, III Signed: 12/11/2020 8:34 AM Workstation Name: [id number]
[2020-12-11 09:05] LABS: INR 0.98 (0.87-1.13)
[2020-12-11 09:06] LABS: Partial Thromboplastin Time 33.9 Sec. (24.2-36.6); Thrombin Time 16.3 Sec. (15.1-19.6)
--- NOTE | 2020-12-11 10:06 | Electrocardiograph Report ---
[facility] Test Date: 2020-12-10 Test Time: 23:19:54 Pat Name: GURPREET HILL Department: Room: Gender: F Breakdown Man: MARY : 1970 Requested By: ED DOC Order Number: [id number] Reading MD: Jimbo Morales Measurements Intervals [place] Rate: 68 P: 23 MO: 164 QRS: 52 QRSD: 76 T: 33 QT: 409 QTc: 435 Interpretive Statements Sinus rhythm No previous ECG available for comparison Electronically Signed On 12-11-2020 10:05:59 EDT by Jimbo Morales
[2020-12-11] MEDS ORDERED: ASPIRIN 325 MG TAB PO ONE (10:39)
--- NOTE | 2020-12-11 12:38 | History and Physical Report ---
History of Present Illness Date of examination: 12/11/20 Date of admission: 12/11/20 10:40 Chief complaint: Left arm numbness and weakness, and chest pain History of present illness: 50-year-old 50-year-old female patient initially complained of chest pain radiates the right's and left shoulders, as well as left upper extremity weakness and numbness started yesterday afternoon 2 PM. Stroke protocol was initiated, evaluated by telemetry neurologist, not a candidate for TPA, recommend admission and full neuro work-up to evaluate for stroke. Patient CT head without contrast, no acute abnormality, patient was hemodynamically stable Patient denies any headache or dizziness, Denies nausea vomiting or abdominal pain Denies fever or urinary symptoms, Patient has significant family history of CVA Patient gives history of intracranial hemorrhage few years ago but she was admitted and treated in [facility]. Past History Past Medical History: hypertension, other (Subarachnoid hemorrhage) Social history: denies: smoking, alcohol abuse, prescription drug abuse Family history: stroke Medications and Allergies Allergies Allergy/AdvReac Type Severity Reaction Status Date / Time No Known Allergies Allergy Verified 06/21/15 21:47 Home Medications Medication Instructions Recorded Confirmed Last Taken Type Acetaminophen/Codeine [Tylenol #3] 1 tab PO Q6H PRN #20 tab 06/22/15 Unknown Rx Prednisone [predniSONE 5 mg (6-Day 5 mg PO .TAPER #1 tab.ds.pk 06/22/15 Unknown Rx Pack, 21 Tabs)] Azithromycin [Zithromax Z-THEODORE] 1 dose PO DAILY 5 Days tab 11/08/18 Unknown Rx Benzonatate [Tessalon Perles] 100 mg PO Q8HR PRN #20 capsule 11/08/18 Unknown Rx Cyclobenzaprine [Flexeril] 10 mg PO TID PRN #20 tablet 11/08/18 Unknown Rx HYDROcodone/APAP 5-325 [Val[place] 1 each PO Q6HR PRN #15 tablet 11/08/18 Unknown Rx 5/325] Ibuprofen [Motrin] 600 mg PO Q8H PRN #20 tablet 11/08/18 Unknown Rx Sodium Chloride [Saline Nasal 1 - 2 spray NS PRN PRN #1 bottle 11/08/18 Unknown Rx Nicasio] Famotidine [Pepcid] 20 mg PO BID 7 Days #14 tablet 11/11/18 Unknown Rx Ibuprofen [Ibuprofen 800] 800 mg PO TID PRN #30 tablet 11/11/18 Unknown Rx predniSONE [Deltasone] 40 mg PO QDAY 5 Days #10 tab 11/11/18 Unknown Rx Active Meds: Active Medications Nitroglycerin (Nitroglycerin 0.4 Mg Tab Subl) 0.4 mg SL .Q5MIN PRN PRN Reason: Chest Pain Review of Systems Constitutional: fatigue, weakness, no weight loss, no weight gain Ears, nose, mouth and throat: no nasal congestion, no nasal discharge Cardiovascular: no chest pain, no palpitations, no syncope, no lightheadedness Respiratory: no cough, no shortness of breath Gastrointestinal: no nausea, no vomiting Exam - Constitutional Vitals: Temp Pulse Resp BP Pulse Ox 98.2 F 58 L 15 154/69 100 12/10/20 23:06 12/11/20 12:16 12/11/20 12:16 12/11/20 12:16 12/11/20 12:16 General appearance: Present: no acute distress, well-nourished - EENT Eyes: Present: PERRL, EOM intact - Neck Neck: Present: supple, normal ROM - Respiratory Respiratory effort: normal Respiratory: bilateral: diminished, negative: rales, rhonchi, wheezing - Cardiovascular Rhythm: regular Heart Sounds: Present: S1 & S2 - Extremities Extremities: no ischemia, No edema - Abdominal General gastrointestinal: Present: soft, non-tender, non-distended, normal bowel sounds - Integumentary Integumentary: Present: clear, warm - Musculoskeletal Musculoskeletal: strength equal bilaterally - Psychiatric Psychiatric: appropriate mood/affect, cooperative - Neurologic Neurologic: CNII-XII intact, moves all extremities HEART Score - HEART Score EKG: Non-specific Age: 45-65 Risk factors: 1-2 risk factors Troponin: Troponin T < 0.010 ng/mL (0.00-0.029) 12/11/20 07:46 Troponin: < normal limit - Critical Actions Critical Actions: 0-3 pts:0.9-1.7%risk of adverse cardiac event.Candidate for discharge Results - Labs CBC & Chem 7: 12/10/20 23:10 12/10/20 23:10 Labs: Abnormal lab results 12/10/20 12/11/20 Range/Units 23:10 08:36 Lymph % (Auto) 41.5 H (13.4-35.0) % Total Creatine Kinase 160 H (30-135) units/L Assessment and Plan --Acute CVA/possible TIA; Patient not a candidate for TPA Aspirin and statin CTA neck, CTA head Echocardiogram, carotid Doppler MRI brain, PT, OT Neurology consult --History of subarachnoid hemorrhage; 2016 --Hypertension; moderate control Permissive hypertension per stroke protocol Closely monitor, as needed hydralazine --Dyslipidemia; statin Low-cholesterol diet --DVT prophylaxis; Lovenox subcu We will closely monitor the patient and adjust management as needed Plan of care reviewed with the patient and her nurse
--- NOTE | 2020-12-11 15:58 | Magnetic Resonance Report ---
MR brain wo con INDICATION / CLINICAL INFORMATION: Stroke. TECHNIQUE: Multiplanar, multisequence MR images of the brain were obtained. COMPARISON: CT head 12/11/2020 FINDINGS: INTRACRANIAL: Mild periventricular and juxtacortical T2 signal white matter hyperintensities. No whit e matter hyperintensity is seen within the brainstem or cerebellum. The corpus callosal T2 signal hyp erintensity does not demonstrate ADC hyperintensity. No evidence of acute infarction. No hemorrhage. Ventricular caliber is normal. No extra-axial collection. No mass. No herniation. Major intracranial vascular flow voids are preserved. ORBITS: No significant abnormality of visualized orbits. SINUSES / MASTOIDS: No significant abnormality of visualized sinuses and mastoid air cells. ADDITIONAL FINDINGS: None. IMPRESSION: 1. No acute infarction. 2. There is T2 signal hyperintensity seen within the splenium of the corpus callosum and mild suprate ntorial periventricular and juxtacortical white matter disease. Findings are nonspecific but are conc erning for demyelination such as multiple sclerosis. Correlate clinically and consider lumbar punctur e. Signer Name: Melvin Boateng MD Signed: 12/11/2020 3:53 PM Workstation Name: [id number]
[2020-12-11] MEDS ORDERED: ONDANSETRON 4 MG/2 ML INJ IV PRN (16:00)
[2020-12-11] MEDS ORDERED: PROMETHAZINE 25 MG RECT SUPP PR PRN (16:00)
[2020-12-11] MEDS ORDERED: MAGNESIUM HYDROXIDE (MOM) ORAL LIQD UDC PO PRN (16:00)
[2020-12-11] MEDS ORDERED: ACETAMINOPHEN 325 MG TAB PO PRN (16:00)
[2020-12-11] MEDS ORDERED: METOCLOPRAMIDE 10 MG TAB PO PRN (16:00)
[2020-12-11] MEDS ORDERED: ENOXAPARIN 40 MG/0.4 ML INJ SUB-Q SCH (22:00)
[2020-12-12 07:29] LABS: Chol/HDL Ratio 2.94 %
[2020-12-12 08:57] VITALS: BP 134/76
--- NOTE | 2020-12-12 09:40 | Consultation ---
History of Present Illness Consult date: 12/12/20 Reason for Consult: Left arm weakness/numbness Chief complaint: Chest pain w/ left arm numbness/weakness History of present illness: 50 yo female with htn, hx of ich, p/w transient chest pain w/ bilateral shoulder pain w/ left arm numbness/weakness. Evaluated by telestroke neurology and deemed not a candidate for tPA. MR Brain w/o contrast negative for an acute infarction. Past History Past Medical History: hypertension, other (Subarachnoid hemorrhage) Social history: denies: smoking, alcohol abuse, prescription drug abuse Family history: stroke Medications and Allergies Allergies Allergy/AdvReac Type Severity Reaction Status Date / Time No Known Allergies Allergy Verified 06/21/15 21:47 Home Medications Medication Instructions Recorded Confirmed Last Taken Type Pravastatin [Pravachol] 40 mg PO QHS 12/11/20 12/11/20 Unknown History amLODIPine [Norvasc] 10 mg PO DAILY 12/11/20 12/11/20 Unknown History Active Meds: Active Medications Acetaminophen (Acetaminophen 325 Mg Tab) 650 mg PO Q4H PRN PRN Reason: Pain, Mild (1-3) Aspirin (Aspirin 325 Mg Tab) 325 mg PO QDAY PENDING SALE TO [facility] Last Admin: 12/12/20 09:14 Dose: 325 mg Documented by: Atorvastatin Calcium (Atorvastatin 40 Mg Tab) 40 mg PO QHS PENDING SALE TO [facility] Last Admin: 12/11/20 21:20 Dose: 40 mg Documented by: Bisacodyl (Bisacodyl 10 Mg Rect Supp) 10 mg HI QDAY PRN PRN Reason: Constipation Enoxaparin Sodium (Enoxaparin 40 Mg/0.4 Ml Inj) 40 mg SUB-Q QDAY@2200 PENDING SALE TO [facility]; Protocol Last Admin: 12/11/20 21:23 Dose: Not Given Documented by: Magnesium Hydroxide (Magnesium Hydroxide (Mom) Oral Liqd Udc) 30 ml PO Q4H PRN PRN Reason: Constipation Metoclopramide HCl (Metoclopramide 10 Mg Tab) 10 mg PO Q6H PRN PRN Reason: Nausea And Vomiting Nitroglycerin (Nitroglycerin 0.4 Mg Tab Subl) 0.4 mg SL .Q5MIN PRN PRN Reason: Chest Pain Ondansetron HCl (Ondansetron 4 Mg/2 Ml Inj) 4 mg IV Q8H PRN PRN Reason: Nausea And Vomiting Pantoprazole Sodium (Pantoprazole 40 Mg Inj) 40 mg IV QDAY WILLIAM Last Admin: 12/12/20 09:14 Dose: Not Given Documented by: Promethazine HCl (Promethazine 25 Mg Rect Supp) 25 mg HI Q6H PRN PRN Reason: Nausea And Vomiting Sodium Chloride (Sodium Chloride 0.9% 10 Ml Flush Syringe) 10 ml IV PRN PRN PRN Reason: LINE FLUSH Last Admin: 12/11/20 21:20 Dose: 10 ml Documented by: Review of Systems All systems: negative (as per HPI;) Physical Examination - Vital Signs Vital Signs: Vital Signs Pulse Resp BP Pulse Ox 76 16 183/100 99 12/10/20 23:03 12/10/20 23:03 12/10/20 23:03 12/10/20 23:03 - Physical Exam Narrative exam: Gen: nad, well-nourished; Head: normocephalic; Eyes: no gaze deviation; no ptosis; ENT: normal vocalization; CVS: warm and well-perfused; Pulm: no respiratory distress; GI: appears non-distended; Ext: no cyanosis at distal extremities; Skin: no acute rash or hives at distal extremities; Heme: no pathologic bruising or ecchymosis at distal extremities; Neuro: alert, oriented to name, age, month, year, surroundings, no dysarthria, no aphasia, CN 2 - PERRL, visual garcía intact, CN 3, 4, 6 - EOMI, CN 5 - facial sensation symmetric to light touch, CN 7 - facial movement symmetric, CN 8 - hearing grossly intact, CN 9, 10 - uvula midline, CN 11 - shrug symmetric, CN 12 - tongue midline; Motor - at least 4+/5 in all exts; Sensory - light touch symmetric, Cerebellar - fnf /hts intact, Gait - deferred secondary to fall risk; NIHSS (1a.) Level of Consciousness:0 (1b.) LOC Questions:0 (1c.) LOC Commands:0 (2.) Best Gaze:0 (3.) Visual:0 (4.) Facial Palsy:0 (5a.) Motor Arm, Left:0 (5b.) Motor Arm, Right:0 (6a.) Motor Leg, Left:0 (6b.) Motor Leg, Right:0 (7.) Limb Ataxia:0 (8.) Sensory:0 (9.) Best Language:0 (10.) Dysarthria:0 (11.) Extinction and Inattention:0 NIHSS Total Score: 0 Results - Laboratory Findings CBC and BMP: 12/10/20 23:10 12/10/20 23:10 Abnormal Lab Findings: Abnormal Labs 12/10/20 12/11/20 12/12/20 23:10 08:36 05:28 Lymph % (Auto) 41.5 H Total Creatine Kinase 160 H HDL Cholesterol 67 H Assessment and Plan 50 yo female with htn, hx of ich, p/w transient chest pain w/ bilateral shoulder pain w/ left arm numbness/weakness. Evaluated by telestroke neurology and deemed not a candidate for tPA. 1. Chest Pain - per primary team. 2. Bilateral shoulder pain w/ L arm numbness/weakness - concern for cardiac event and/or stress-induced. 3. Hx of idiopathic SAH - no antiplatelet therapy recommended; +family hx of aneurysms. 4. Recommend outpatient followup with Neurology in 4 to 6 weeks, regarding MRI Brain findings. Jourdan Ho MD Neurology
[2020-12-12] MEDS ORDERED: PANTOPRAZOLE 40 MG INJ IV SCH (10:00)
[2020-12-12] MEDS ORDERED: ASPIRIN 325 MG TAB PO SCH (10:00)
--- NOTE | 2020-12-12 10:11 | Discharge Summary ---
Providers - Providers Date of Admission: 12/11/20 10:40 Attending physician: KAYLEEN GAMBINO MD 12/11/20 15:52 Consult to Case Management [CONS] Routine Services Needed at Discharge: [place] Carpenter Notified:: CASE MANAGEMENT Occupational Therapy Evaluate and Treat [CONS] Routine Comment: Reason For Exam: Neuro deficits Physical Therapy Evaluation and Treat [CONS] Routine Comment: Reason For Exam: Neuro deficits 12/11/20 16:53 Consult to Physician [CONS] Routine Comment: Consulting Provider: ALEXANDRA NOVOA Physician Instructions: Reason For Exam: Neuro symptoms/LUE weakness and numbness Primary care physician: FOOD SERVICES COORDINATOR Hospitalization Reason for admission: chest pain radiates the right's and left shoulders Condition: Good Hospital course: 50-year-old 50-year-old female patient initially complained of chest pain radiates the right's and left shoulders, as well as left upper extremity weakness and numbness started yesterday afternoon 2 PM. Stroke protocol was initiated, evaluated by telemetry neurologist, not a candidate for TPA, recommend admission and full neuro work-up to evaluate for stroke. Patient CT head without contrast, no acute abnormality, patient was hemodynamically stable Patient denies any headache or dizziness, Denies nausea vomiting or abdominal pain Denies fever or urinary symptoms, Patient has significant family history of CVA Patient gives history of intracranial hemorrhage few years ago but she was admitted and treated in [facility]. Patient this morning symptoms are improved no further chest pain also reported by the patient. She had stopped taking her cholesterol medication I did advise her the importance of this. Especially in the setting of prior hemorrhagic stroke. Will defer antiplatelets need to a neurologist. TIA Possible multiple sclerosispatient work-up Subarachnoid hemorrhage; 2016 Hypertension Dyslipidemia Disposition: DC-01 TO HOME OR SELFCARE Final Discharge Diagnosis (Prints w/discharge instructions): TIA Time spent for discharge: 35 mins Core Measure Documentation - Palliative Care Palliative Care/ Comfort Measures: Not Applicable - Core Measures Any of the following diagnoses?: stroke - Stroke Discharge Requirements Statin for LDL = or >70 mg/dl on DC: Yes Anticoag for atrial fib/atrial flutter: Not Applicable Antithrombotic for ischemic stroke: No Reason for no antithrombotic on DC: Medical Contraindication Exam - Physical Exam Narrative exam: VITAL SIGNS: Reviewed. GENERAL: The patient appears normally developed, Vital signs as documented. HEAD: No signs of head trauma. EYES: Pupils are equal. Extraocular motions intact. EARS: Hearing grossly intact. MOUTH: Oropharynx is normal. NECK: No adenopathy, no JVD. CHEST: Chest with clear breath sounds bilaterally. No wheezes, rales, or rhonchi. CARDIAC: Regular rate and rhythm. S1 and S2, without murmurs, gallops, or rubs. VASCULAR: No Edema. Peripheral pulses normal and equal in all extremities. ABDOMEN: Soft, non tender and non distended. No rebound or guarding, and no masses palpated. Bowel Sounds normal. MUSCULOSKELETAL: Good range of motion of all major joints. Extremities without clubbing, cyanosis or edema. NEUROLOGIC EXAM: Alert and oriented x 3 No focal sensory or strength deficits. Speech normal. Follows commands. PSYCHIATRIC: Mood normal. SKIN: detail exam as documented in skin assessment - Constitutional Vitals: Temp Pulse Resp BP Pulse Ox 98.4 F 81 18 134/76 96 12/12/20 08:31 12/12/20 08:31 12/12/20 08:31 12/12/20 08:31 12/12/20 08:31 Plan Activity: advance as tolerated, fall precautions Diet: low fat Special Instructions: record daily BP diary, record blood sugar diary, physical therapy, occupational therapy Plan of Treatment: Follow-up with primary physician and also local neurologist The MRI findings may need further work-up for unrelated multiple sclerosis if symptoms persist Follow up with: DAMON BESS MD [Primary Care Provider] - 3-5 Days DONI MADRIGAL MD [Staff Physician] - 7 Days LORNE SHELL MD [Staff Physician] - 7 Days
--- NOTE | 2020-12-13 11:26 | Electrocardiograph Report ---
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
--- NOTE | 2020-12-13 11:43 | Electrocardiograph Report ---
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
== END 2020-12-12 15:00 | disposition home or self-care (01) ==
LOC: ED 21:22 → 4A 12-11 10:40
PROVIDERS: ADMIT Internal Medicine; ATTEND Internal Medicine
DX: I63.9 Cerebral infarction, unspecified (principal); M62.81 Muscle weakness (generalized); I10 Essential (primary) hypertension; E78.5 Hyperlipidemia, unspecified; R07.89 Other chest pain; R20.0 Anesthesia of skin; R29.700 NIHSS score 0; E78.00 Pure hypercholesterolemia, unspecified; M25.511 Pain in right shoulder; M25.512 Pain in left shoulder; Z98.890 Other specified postprocedural states; Z79.82 Long term (current) use of aspirin; Z68.26 Body mass index [BMI] 26.0-26.9, adult
CPT/HCPCS: 36415; 70450; 70496; 70498; 70551; 71046; 80053; 80061; 82550; 83735; 84484; 85025; 85610; 85670; 85730; 93005; 93306; 97165; 99285; A9270; G0378; J7030; Q9967

== ENCOUNTER 2021-07-03 09:02 | Outpatient (CLI) | payer OTHER ==
--- NOTE | 2021-07-04 09:12 | Treadmill Report ---
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 Baseline heart rate was 73 Baseline blood pressure 130/60. Summary Negative treadmill EKG Good exercise capacity 9 minutes on Mariusz protocol No EKG change or arrhythmia suggestive No exaggerated blood pressure response activity Electronically Signed On 07-04-2021 9:11:58 EDT by Malcom Montgomery
== END 2021-07-03 09:03 | disposition home or self-care (01) ==
LOC: CARD 09:02
PROVIDERS: ATTEND Internal Medicine
DX: I10 Essential (primary) hypertension (principal); E78.01 Familial hypercholesterolemia; R73.03 Prediabetes; Z86.79 Personal history of other diseases of the circulatory system
CPT/HCPCS: 93017